=== PATIENT | male | born 1970 | race Caucasian/White ===

== ENCOUNTER 2025-01-20 18:32 | Emergency (ER) | payer BC, MEDICAID ==
[~2025-01-20] VITALS: Ht 165.1 cm; Wt 111.3 kg
[~2025-01-20 18:32] MED LIST: ASPI-1071 PO
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
--- NOTE | 2025-01-20 19:08 | ELECTROCARDIOGRAPH REPORT ---
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 DAYAMI Avendano Measurements Intervals [place] Rate: 76 P: 7 IA: 183 QRS: 84 QRSD: 151 T: 12 QT: 414 QTc: 466 Interpretive Statements Sinus rhythm Right bundle branch block Probable anteroseptal infarct, old Baseline wander in lead(s) V3,V5 Electronically Signed On 01-21-2025 17:20:[address] DAYAMI Avendano Please click the below link to view image of tracing.
[2025-01-20 19:25] LABS: MEAN PLATELET VOLUME 8.7 FL (7.4-10.4); RED CELL DISTRIBUTION WIDTH 14.3 % (11.5-14.5)
[2025-01-20 19:51] LABS: CREATININE 1.17 MG/DL (0.60-1.10); PRO BRAIN NATRIURETIC PEPTIDE < 30 PG/ML (0-125); TOTAL CARBON DIOXIDE 26.4 MMOL/L (24-32); eCRCL 64 ML/MIN; eGFR 65 ML/MIN
[2025-01-20 22:38] VITALS: BP 158/84; PULSE 66; RESP 16; TEMP 97.7; O2SAT 99
== END 2025-01-20 22:45 | disposition home or self-care (01) ==
LOC: ER 18:33
DX: S61.213A Laceration without foreign body of left middle finger without damage to nail, initial encounter (principal); T75.4XXA Electrocution, initial encounter; Z79.82 Long term (current) use of aspirin; W86.8XXA Exposure to other electric current, initial encounter; Y93.89 Activity, other specified; Y92.000 Kitchen of unspecified non-institutional (private) residence as the place of occurrence of the external cause; Y99.8 Other external cause status
CPT/HCPCS: 12001; 36415; 80053; 82550; 83880; 84484; 85025; 93005; 99284; A6258; A6449